=== PATIENT | female | born 1975 | race African-American/Black ===

== ENCOUNTER → 2017-08-13 | Outpatient (CLI) | payer BC ==
[2017-08-13 14:59] LABS: ANION GAP 9 (6-14); CARBON DIOXIDE 28 mmol/L (21-32); CHLORIDE 102 mmol/L (98-107); GLUCOSE 88 mg/dL (70-99); POTASSIUM 3.9 mmol/L (3.5-5.1); SODIUM 139 mmol/L (136-145)
[2017-08-13 15:15] LABS: BARBITURATES NEG (NEG); BENZODIAZEPINES POS (NEG); CANNABINOIDS NEG (NEG); COCAINE NEG (NEG); METHADONE NEG (NEG); OPIATES NEG (NEG); PHENCYCLIDINE NEG (NEG)
[2017-08-13 15:18] LABS: AMPHETAMINE/METHAMPHETAMINE NEG (NEG); ETHANOL, URINE NEG (NEG)
[2017-08-13 15:28] LABS: THYROID STIM HORMONE (TSH) 0.953 uIU/mL (0.358-3.74)
[2017-08-13 18:17] LABS: VITAMIN-B12 > 2000 pg/mL (247-911)
== END | disposition home or self-care (01) ==
LOC: EKG 14:11
DX: R00.0 Tachycardia, unspecified (principal)
CPT/HCPCS: 36415; 80051; 80307; 82607; 82947; 84443; 93005

== ENCOUNTER → 2017-08-16 | Outpatient (CLI) | payer BC | END | disposition home or self-care (01) | LOC: RT 12:05 | DX: R56.9 Unspecified convulsions (principal) | CPT/HCPCS: 95816 ==

== ENCOUNTER → 2018-08-01 | Outpatient (CLI) | payer BC ==
--- NOTE | 2018-08-01 16:31 | EEG ---
DATE OF SERVICE: 08/01/2018 EEG NUMBER: [id number]. OBJECTIVE: This is a 42-year-old female patient with history of seizure or seizure-like episodes. EEG was requested to evaluate seizure activity. METHODS: Twenty electrodes were applied according to the international 10-20 electrode placement system. EKG monitoring, hyperventilation, intermittent photic stimulation, monopolar and bipolar montages are routinely utilized. The record was obtained on a digital system with video monitoring. FINDINGS: 1. Background: The patient was recorded in the awake and drowsy states. No actual sleep state was recorded. The overall background amplitude is 10-30 microvolts. A posterior dominant rhythm of 8-10 Hz is observed. 2. Abnormalities: No specific epileptiform discharge or electrographic seizure is seen. No focal or diffuse slowing. 3. Activation: Hyperventilation was performed with good efforts and normal response. Intermittent photic stimulation was performed with photic driving, Photoparoxysmal response noted. IMPRESSION: This EEG is a borderline study for the awake and drowsy states. No actual sleep state was recorded. No focal, lateralizing, specific epileptiform discharge or electrographic seizure is seen. Photoparoxysmal response noted. GUILLERMO RIVERA MD DR: ELISABET/isabel JOB#: [id number] / [id number] GIGI
== END | disposition home or self-care (01) ==
LOC: RT 13:18
PROVIDERS: ATTEND Psychiatry & Neurology Neurology
DX: R56.9 Unspecified convulsions (principal)
CPT/HCPCS: 95816

== ENCOUNTER → 2018-08-12 | Outpatient (CLI) | payer BC ==
[2018-08-12 15:01] LABS: CREATININE 0.7 mg/dL (0.6-1.0)
[2018-08-12 15:18] LABS: AMPHETAMINE/METHAMPHETAMINE NEG (NEG); BARBITURATES NEG (NEG); BENZODIAZEPINES NEG (NEG); CANNABINOIDS NEG (NEG); COCAINE NEG (NEG); METHADONE NEG (NEG); OPIATES NEG (NEG); PHENCYCLIDINE NEG (NEG)
== END | disposition home or self-care (01) ==
LOC: LAB 14:26
PROVIDERS: ATTEND Psychiatry & Neurology Neurology
DX: R56.9 Unspecified convulsions (principal)
CPT/HCPCS: 36415; 80307; 82565; 84520

== ENCOUNTER → 2018-10-03 | Outpatient (CLI) | payer BC ==
--- NOTE | 2018-10-03 16:25 | KCIC ---
MR of the left knee HISTORY: Left knee pain, injury September 21, 2018. TECHNIQUE: Routine multiplanar sequences are obtained. FINDINGS: No evidence of medial meniscal tear. No evidence of lateral meniscal tear. Anterior and posterior cruciate ligaments are intact. Medial collateral ligament is intact. Iliotibial band unremarkable. Fibular collateral ligament, biceps femoris tendon and popliteus tendon are intact. Extensor mechanism intact. Trace joint effusion. There is a focal chondral defect at the central femoral trochlea groove, measures about 2 mm wide by 6 mm height. Medial and lateral compartment articular cartilage is intact. No aggressive bone destruction. No acute fracture. No significant Mitchell's cyst. IMPRESSION: 1. Linear chondral defect at the femoral trochlea could be due to prior traumatic tear or more chronic degenerative chondromalacia. 2. No meniscal tear or other internal derangement. Electronically signed by: Darian Croft MD (10/03/2018 4:22 PM) [id number]
== END | disposition home or self-care (01) ==
LOC: KCIC MRI 15:34
PROVIDERS: ATTEND Nurse Practitioner Family
DX: M25.562 Pain in left knee (principal); Z90.710 Acquired absence of both cervix and uterus; V88.2XXA Person injured in collision between car and pick-up truck or van, nontraffic, initial encounter; Y93.89 Activity, other specified; Y92.89 Other specified places as the place of occurrence of the external cause; Y99.8 Other external cause status
CPT/HCPCS: 73721